=== PATIENT | female | born 1960 | race Hispanic/Latino ===

== ENCOUNTER 2021-11-15 17:40 | Emergency (ER) | payer MEDICAID ==
[2021-11-15] MEDS ORDERED: TETANUS,DIPH,PERTUSS(ACELL) VACCINE 0.5 ML SYRINGE IM ONE (21:54)
[2021-11-15] MEDS ORDERED: SODIUM CHLORIDE 0.9% 1000 ML 1,000 ML IV ONE (21:54)
[2021-11-15] MEDS ORDERED: AMPICILLIN/SULBACTA 3GM/100ML 3 GM/100 ML BAG IV ONE (21:54)
--- NOTE | 2021-11-15 22:36 | XRay Report ---
Right tibia-fibula, 2 views HISTORY: Animal bite COMPARISON: None FINDINGS: There is suggestion of soft tissue injury of the lateral proximal foreleg. No soft tissue g as or radiopaque foreign body. No acute fracture or malalignment. Signer Name: Cuong Whitley MD Signed: 11/15/2021 10:31 PM Workstation Name: [id number]
--- NOTE | 2021-11-15 22:37 | XRay Report ---
Right humerus, 3 views HISTORY: Animal bite COMPARISON: None FINDINGS: No acute fracture or malalignment. Evidence of soft tissue injury at the lateral elbow. No radiopaque foreign body. Signer Name: Cuong Whitley MD Signed: 11/15/2021 10:32 PM Workstation Name: [id number]
[2021-11-15 23:13] LABS: Basophils # (Auto) 0.1 K/mm3 (0.0-0.1); Basophils % (Auto) 0.9 % (0.0-1.8); Eosinophils # (Auto) 0.2 K/mm3 (0.0-0.4); Eosinophils % (Auto) 2.3 % (0.0-4.3); Lymphocytes # (Auto) 2.1 K/mm3 (1.2-5.4); Lymphocytes % (Auto) 28.7 % (13.4-35.0); Mean Corpuscular HGB Conc 30 % (30-34); Monocytes # (Auto) 0.6 K/mm3 (0.0-0.8); Monocytes % (Auto) 8.5 % (0.0-7.3); Platelet Count 250 K/mm3 (140-440); Red Blood Count 4.51 M/mm3 (3.65-5.03); Red Cell Distribution Width 18.8 % (13.2-15.2)
[2021-11-15 23:28] LABS: Hematocrit 29.8 % (30.3-42.9); Hemoglobin 8.9 gm/dl (10.1-14.3); Mean Corpuscular Volume 66 fl (79-97)
[2021-11-15 23:30] LABS: Alanine Aminotransferase 19 units/L (7-56); Albumin 3.9 g/dL (3.9-5); Blood Urea Nitrogen 14 mg/dL (7-17); Calcium 8.9 mg/dL (8.4-10.2); Hemolysis Index 12
[2021-11-15 23:42] LABS: BUN/Creatinine Ratio 23
--- NOTE | 2021-11-16 01:45 | Cat Scan Report ---
CT HEAD WITHOUT CONTRAST INDICATION / CLINICAL INFORMATION: Pt had a fall. TECHNIQUE: All CT scans at this location are performed using CT dose reduction for ALARA by means of automated exposure control. COMPARISON: None available. FINDINGS: BRAIN PARENCHYMA: No acute intracranial hemorrhage. No evidence of recent infarct. No mass effect or midline shift. VENTRICULAR SYSTEM/EXTRA-AXIAL SPACES: Ventricles are normal for age. No extra-axial fluid collection . ORBITS: Normal as visualized. SKELETAL SYSTEM/SOFT TISSUES: Normal bones and soft tissues. PARANASAL SINUSES/MASTOID AIR CELLS: No significant abnormality. ADDITIONAL FINDINGS: None. IMPRESSION: 1. No acute intracranial abnormality. Signer Name: Cuong Whitley MD Signed: 11/16/2021 1:40 AM Workstation Name: [id number]
[2021-11-16 02:42] LABS: Granular Casts,Urine 1 /LPF; Hyaline Casts,Urine 3 /LPF; Mucus,Urine 1+ /HPF
[2021-11-16 02:44] LABS: Benzodiazepines Screen,Urine Negative; Cannabinoid Screen,Urine Negative; Cocaine Screen,Urine Negative; Methadone Screen,Urine Negative; Opiate Screen,Urine Negative
[2021-11-16 02:45] LABS: Bilirubin,Urine Negative (Negative); Blood,Urine Negative (Negative); Color,Urine Yellow (Yellow); Protein,Urine <30 mg dL mg/dL (Negative)
[2021-11-16 02:59] LABS: Amphetamine Screen,Urine Positive
--- NOTE | 2021-11-16 03:44 | Emergency Department Report ---
ED Animal Bite HPI - General Chief Complaint: Animal Bite Stated Complaint: DOG BITE Time Seen by Provider: 11/15/21 21:28 Source: patient, EMS Mode of arrival: Wheelchair Limitations: No Limitations - History of Present Illness Initial Comments: PT ARRIVING FROM HOME WHEN SHE WAS ATTACKED BY TWO DOGS. DEEP PUNCTURE WOUNDS TO R BICEP AND R LEG. Complaint: animal bite -: Sudden, hour(s) Right: Arm, Leg Animal: dog Animal Control Notified: Yes Description: household pet Mechanism: bite Pain Description: sharp Severity scale (0 -10): 2 Context: playing with animal Associated Symptoms: erythema - Related Data Patient Tetanus UTD: No Previous Rx's Medication Instructions Recorded Last Taken Type Amoxicillin/K Clav Tab [Augmentin 1 tab PO Q12HR #14 tab 11/16/21 Unknown Rx 875 mg] Allergies Allergy/AdvReac Type Severity Reaction Status Date / Time No Known Allergies Allergy Verified 11/15/21 17:44 ED Review of Systems ROS: Stated complaint: DOG BITE Other details as noted in HPI Constitutional: denies: chills, fever Eyes: denies: eye pain, eye discharge, vision change ENT: denies: ear pain, throat pain Respiratory: denies: cough, shortness of breath, wheezing Cardiovascular: denies: chest pain, palpitations Endocrine: no symptoms reported Gastrointestinal: denies: abdominal pain, nausea, diarrhea Genitourinary: denies: urgency, dysuria, discharge Musculoskeletal: denies: back pain, joint swelling, arthralgia Skin: denies: rash, lesions Neurological: denies: headache, weakness, paresthesias Psychiatric: denies: anxiety, depression Hematological/Lymphatic: denies: easy bleeding, easy bruising ED Past Medical Hx - Past Medical History Previous Medical History?: No Hx Hypertension: No - Medications Home Medications: Home Medications Medication Instructions Recorded Confirmed Last Taken Type Amoxicillin/K Clav Tab [Augmentin 1 tab PO Q12HR #14 tab 11/16/21 Unknown Rx 875 mg] ED Physical Exam - General Limitations: No Limitations General appearance: alert, in no apparent distress - Head Head exam: Present: atraumatic, normocephalic - Eye Eye exam: Present: normal appearance - ENT ENT exam: Present: mucous membranes moist - Neck Neck exam: Present: normal inspection - Respiratory Respiratory exam: Present: normal lung sounds bilaterally. Absent: respiratory distress - Cardiovascular Cardiovascular Exam: Present: regular rate, normal rhythm. Absent: systolic murmur, diastolic murmur, rubs, gallop - GI/Abdominal GI/Abdominal exam: Present: soft, normal bowel sounds - Extremities Exam Extremities exam: Present: normal inspection - Back Exam Back exam: Present: normal inspection - Neurological Exam Neurological exam: Present: alert, oriented X3 - Psychiatric Psychiatric exam: Present: normal affect, normal mood - Skin Skin exam: Present: warm, intact, normal color, erythema, other (animal bites to right upper arm withbruises as well as lower leg ). Absent: rash ED Course Vital Signs 11/15/21 11/15/21 11/15/21 17:41 19:31 23:16 Temperature 97.6 F 98.4 F Pulse Rate 120 H 98 H 88 Respiratory 18 16 18 Rate Blood Pressure 116/80 119/66 130/83 [Left] O2 Sat by Pulse 96 100 99 Oximetry - Reevaluation(s) Reevaluation #1: 11/16/21 03:44 tetatnus abx given x ray negative animal control notified , dig in custody will be in contact with patient Critical care attestation.: If time is entered above; I have spent that time in minutes in the direct care of this critically ill patient, excluding procedure time. ED Disposition Clinical Impression: Dog bite Disposition: 01 HOME / SELF CARE / HOMELESS Is pt being admited?: No Does the pt Need Aspirin: No Condition: Stable Instructions: Animal Bite, Adult, [id number]
[2021-11-16 04:56] VITALS: BP 132/84
== END 2021-11-16 04:33 | disposition home or self-care (01) ==
LOC: ED 17:40
DX: S41.151A Open bite of right upper arm, initial encounter (principal); S81.851A Open bite, right lower leg, initial encounter; W54.0XXA Bitten by dog, initial encounter; Y93.89 Activity, other specified; Y92.89 Other specified places as the place of occurrence of the external cause; Y99.8 Other external cause status
CPT/HCPCS: 36415; 70450; 73060; 73590; 80053; 80307; 81001; 85025; 90471; 90715; 96361; 96365; 99285; J0295; J7030

== ENCOUNTER 2021-12-14 15:44 | Emergency (ER) | payer MEDICAID ==
[2021-12-14 16:16] VITALS: BP 130/99
[2021-12-14] MEDS ORDERED: LIDOCAINE-MPF (1%) 10 MG/1 ML VIAL 5 ML INFILTRATI ONE (16:37)
[2021-12-14] MEDS ORDERED: IBUPROFEN 800 MG TAB PO ONE (16:37)
--- NOTE | 2021-12-14 16:37 | Emergency Department Report ---
ED Animal Bite HPI - General Chief Complaint: Animal Bite Stated Complaint: DOG BITE/RIGHT SIDE Time Seen by Provider: 12/14/21 16:28 Source: patient Mode of arrival: Ambulatory Limitations: No Limitations - History of Present Illness Initial Comments: Patient is a 61-year-old female that comes to the ER after being bit by her neighbors dogs 1 month ago. This is her second visit to the ER. She has numerous bites on her legs but one on her arm that she is most concerned about. She has been on amoxicillin. But she is concerned they are getting infected. The wounds are healing but they are with surrounding erythema. She denies fever or chills. Patient has no hypotension or tachycardia. Patient ambulatory, nontoxic [id number]. Patient's tetanus is up-to-date. She did not receive rabies after the dog bites. Again the dog bite was 1 month ago. Complaint: animal bite - Related Data Previous Rx's Medication Instructions Recorded Last Taken Type cephALEXin [Keflex] 500 mg PO Q12HR #20 cap 12/14/21 Unknown Rx Allergies Allergy/AdvReac Type Severity Reaction Status Date / Time No Known Allergies Allergy Verified 12/14/21 16:13 ED Review of Systems ROS: Stated complaint: DOG BITE/RIGHT SIDE Other details as noted in HPI Comment: All other systems reviewed and negative ED Past Medical Hx - Past Medical History Previous Medical History?: Yes Hx Hypertension: No - Surgical History Past Surgical History?: Yes - Family History Family history: no significant - Social History Smoking Status: Current Every Day Smoker Substance Use Type: None - Medications Home Medications: Home Medications Medication Instructions Recorded Confirmed Last Taken Type cephALEXin [Keflex] 500 mg PO Q12HR #20 cap 12/14/21 Unknown Rx ED Physical Exam - General Limitations: No Limitations General appearance: alert, in no apparent distress - Head Head exam: Present: atraumatic, normocephalic - Eye Eye exam: Present: normal appearance - ENT ENT exam: Present: mucous membranes moist - Neck Neck exam: Present: normal inspection - Respiratory Respiratory exam: Present: normal lung sounds bilaterally. Absent: respiratory distress - Cardiovascular Cardiovascular Exam: Present: regular rate, normal rhythm, other (hr 90). Absent: systolic murmur, diastolic murmur, rubs, gallop - GI/Abdominal GI/Abdominal exam: Present: soft, normal bowel sounds - Extremities Exam Extremities exam: Present: normal inspection - Back Exam Back exam: Present: normal inspection - Neurological Exam Neurological exam: Present: alert, oriented X3 - Psychiatric Psychiatric exam: Present: normal affect, normal mood - Skin Skin exam: Present: warm, dry, intact, normal color, other (Numerous dog bites of her bilateral lower extremities and right upper extremity). Absent: rash ED Course Vital Signs 12/14/21 16:13 Temperature 98.2 F Pulse Rate 109 H Respiratory 18 Rate Blood Pressure 130/99 [Left] O2 Sat by Pulse 97 Oximetry - Reevaluation(s) Reevaluation #1: 12/14/21 17:28 Wounds are clean and dry. I have given patient a gram of Rocephin IM. Have asked her to stop taking the amoxicillin. I will discharge her home on Keflex. Patient has been asked to follow-up with primary care in 1 week to make sure that this is healing. Patient being discharged home with discharge plan of care including diet, activity, medications and follow-up. Vital Signs 12/14/21 16:13 Temperature 98.2 F Pulse Rate 109 H Respiratory 18 Rate Blood Pressure 130/99 [Left] O2 Sat by Pulse 97 Oximetry Critical care attestation.: If time is entered above; I have spent that time in minutes in the direct care of this critically ill patient, excluding procedure time. ED Disposition Clinical Impression: Dog bite, Cellulitis Disposition: 01 HOME / SELF CARE / HOMELESS Is pt being admited?: No Does the pt Need Aspirin: No Condition: Stable Instructions: Animal Bite, Adult Additional Instructions: keep wounds clean and dry follow up with pcp in 1 week to be sure this is healing med as ordered today until gone diet and activity as tolerated Prescriptions: cephALEXin [Keflex] 500 mg PO Q12HR #20 cap Referrals: JHONNY DOLL MD [Staff Physician] - 3-5 Days Time of Disposition: 16:52
== END 2021-12-14 18:52 | disposition home or self-care (01) ==
LOC: ED 15:44
DX: S41.159A Open bite of unspecified upper arm, initial encounter (principal); S81.859A Open bite, unspecified lower leg, initial encounter; L03.90 Cellulitis, unspecified; F17.200 Nicotine dependence, unspecified, uncomplicated; W54.0XXA Bitten by dog, initial encounter; Y93.89 Activity, other specified; Y92.89 Other specified places as the place of occurrence of the external cause; Y99.8 Other external cause status
CPT/HCPCS: 96372; 99282; J0696; J3490